=== PATIENT | male | born 1970 | race Hispanic/Latino ===

== ENCOUNTER 2018-01-05 16:27 | Emergency (ER) | payer OTHER, BC ==
[2018-01-05 16:28] VITALS: BMI 41.0
[2018-01-05 16:41] VITALS: TEMP 99.2
--- NOTE | 2018-01-05 17:00 | ED PDOC ---
Arrival/HPI - General Chief Complaint: Rib Injury Time Seen by Provider: 01/05/18 16:56 Historian: Patient - History of Present Illness Narrative History of Present Illness (Text): 01/05/18 16:57 This 47 yo male presents to this ED c/o right lower rib pain x [employer]. Patient stated he fell down about 6-8 feet high from a scaffold at work. He stated he hit a metal bar. Patient denies head injury, neck pain, sob, diaphoresis, duarte, n /v, hematuria, abnormal gait, or dizziness. Time/Duration: Prior to Arrival Quality: Aching Context: Work Past Medical History - Provider Review Nursing Documentation Reviewed: Yes - Past History Past History: Non-Contributing - Infectious Disease Hx of Infectious Diseases: None - Cardiac Hx Cardiac Disorders: No Hx Pacemaker: No - Neurological Hx Paralysis: No - Hematological/Oncological Hx Blood Transfusions: No Hx Blood Transfusion Reaction: No - Musculoskeletal/Rheumatological Hx Musculoskeletal Disorders: No - Psychiatric Hx Depression: No Hx Emotional Abuse: No Hx Physical Abuse: No Hx Substance Use: No - Surgical History Hx Gastric Bypass Surgery: Yes (gastric sleeve) Hx Orthopedic Surgery: Yes (right knee replaced, right shoulder replaced) Other/Comment: amputated right hand tip of index finger. - Anesthesia Hx Anesthesia: Yes Hx Anesthesia Reactions: No Hx Malignant Hyperthermia: No - Suicidal Assessment Feels Threatened In Home Enviroment: No Family/Social History - Physician Review Nursing Documentation Reviewed: Yes Family/Social History: Other (noncontributory) Smoking Status: Never Smoked Hx Alcohol Use: No Hx Substance Use: No Hx Substance Use Treatment: No Allergies/Home Meds Allergies/Adverse Reactions: Allergies No Known Allergies Allergy (Verified 01/05/18 16:41) NO ALLERGIES Review of Systems - Review of Systems Constitutional: Normal. absent: Fatigue, Weight Change, Fevers Eyes: Normal ENT: Normal. absent: Sore Throat Respiratory: Other (right lower rib pain). absent: SOB, Cough, Sputum, Wheezing Cardiovascular: Normal. absent: Chest Pain, Palpitations, Edema Gastrointestinal: Normal. absent: Abdominal Pain, Nausea, Vomiting Genitourinary Male: Normal. absent: Hematuria Musculoskeletal: Normal. absent: Back Pain, Neck Pain Skin: Normal Neurological: Normal. absent: Headache, Dizziness, Focal Weakness, Gait Changes , Speech Changes, Facial Droop, Disequilibrium Endocrine: Normal Hemo/Lymphatic: Normal Psychiatric: Normal Physical Exam Vital Signs Temp Pulse Resp BP Pulse Ox 01/05/18 16:36 99.2 F 94 H 20 154/90 H 98 Temperature: Afebrile Blood Pressure: Normal Pulse: Regular Respiratory Rate: Normal Appearance: Positive for: Well-Appearing, Non-Toxic, Comfortable Pain Distress: None Mental Status: Positive for: Alert and Oriented X 3 - Systems Exam Head: Present: Atraumatic, Normocephalic, Other (no raccoon sign. No strong sign). No: Ecchymosis Pupils: Present: PERRL, Other (no hyphmea) Extroacular Muscles: Present: EOMI. No: Entrapment Conjunctiva: Present: Normal Ears: Present: Normal, Other (no hemotympanum) Mouth: Present: Moist Mucous Membranes, Normal Lips, Normal Tounge. No: Drooling Nose (External): Present: Atraumatic Nose (Internal): Present: Normal Inspection Neck: Present: Normal Range of Motion, Trachea Midline. No: Meningeal Signs, MIDLINE TENDERNESS, Paraspinal Tenderness, Lymphadenopathy Respiratory/Chest: Present: Clear to Auscultation, Good Air Exchange, Tender to Palpation ((+) mild right lateral lower rib tenderness on palpation), Other (no chest flail. No ecchymosis). No: Respiratory Distress, Accessory Muscle Use, Wheezes, Decreased Breath Sounds, Retracting, Rhonchi Cardiovascular: Present: Regular Rate and Rhythm, Normal S1, S2. No: Murmurs Abdomen: No: Tenderness Upper Extremity: Present: Normal Inspection, Normal ROM Lower Extremity: Present: Normal Inspection, Normal ROM Neurological: Present: GCS=15, CN II-XII Intact, Speech Normal, Motor Func Grossly Intact, Normal Sensory Function, Normal Cerebellar Funct, Gait Normal Skin: Present: Warm, Dry, Normal Color. No: Rashes Psychiatric: Present: Alert, Oriented x 3, Normal Insight, Normal Concentration Medical Decision Making ED Course and Treatment: 01/05/18 17:46 Re-evaluation. Patient feels better. Discussed results and plan with patient who expresses understanding. All questions answered and there is agreement with the plan to discharge home with instructions. Patient stable for discharge. Return if symptoms persist or worsen. Patient was recommended to use incentive spirometer every hour for 10 minutes for at least 5 days. Patient also requested Pain medication, and he let me know Percocet 5mg tab works well for his pain. I told patient since x-ray did not demonstrate fracture, Naproxen 500 mg tab will be prescribed. I told patient to return to ED if symptoms worsen. Re-evaluation Time: 17:50 Reassessment Condition: Re-examined, Improved - RAD Interpretation Radiology Orders: 01/05/18 16:56 RIBS BILATERAL W/PA CHEST [RAD] Stat - Medication Orders Current Medication Orders: Discontinued Medications Ketorolac Tromethamine (Toradol) 30 mg IM STAT STA Stop: 01/05/18 17:38 Disposition/Present on Arrival - Present on Arrival Any Indicators Present on Arrival: No History of DVT/PE: No History of Uncontrolled Diabetes: No Urinary Catheter: No History of Decub. Ulcer: No History Surgical Site Infection Following: None - Disposition Have Diagnosis and Disposition been Completed?: Yes Diagnosis: Right-sided chest wall pain, Fall Disposition: HOME/ ROUTINE Disposition Time: 17:50 Patient Plan: Discharge Condition: IMPROVED Additional Instructions: Call private doctor for follow up visit in 1-2 days. Take medication as instructed with food. Use incentive spirometer every 1-2 hours for 10 minutes for at least 5 days. Be aware muscle relaxer could make you feel drowsy and sleepy, so do no drive or operate machinery if you take them for at least 10 hours. Prescriptions: Famotidine [Pepcid] 40 mg PO DAILY #10 tablet Methocarbamol [Robaxin-750] 750 mg PO TID #21 tab Naproxen 500 mg PO BID PRN #14 tablet PRN Reason: Pain, Severe (8-10) Forms: [facility] ([place]), WORK NOTE
[2018-01-05 17:51] VITALS: BP 135/91; PULSE 86; RESP 18; O2SAT 100
--- NOTE | 2018-01-06 09:39 | RAD ---
PROCEDURE: Radiographs of the chest and bilateral ribs HISTORY: right rib pain COMPARISON: None available. TECHNIQUE: Frontal radiograph of the chest and multiple oblique radiographs of the bilateral ribs were obtained. FINDINGS: RIGHT RIBS: No fracture or focal lesion visualized. LEFT RIBS: No fracture or focal lesion visualized. LUNGS: Clear. PLEURA: No pneumothorax or pleural fluid. CARDIOVASCULAR: Normal sized heart. No pulmonary vascular congestion. OTHER FINDINGS: None. IMPRESSION: No acute findings
== END 2018-01-05 18:11 | disposition home or self-care (01) ==
LOC: ED 16:27
DX: R07.89 Other chest pain (principal); W17.89XA Other fall from one level to another, initial encounter; Y93.H3 Activity, building and construction; Y92.89 Other specified places as the place of occurrence of the external cause; Y99.0 Civilian activity done for income or pay
CPT/HCPCS: 71111; 96372; 99283; J1885